=== PATIENT | male | born 1945 | race Caucasian/White ===

== ENCOUNTER 2019-10-18 15:09 | Inpatient (IN) ==
[2019-10-18] MEDS ORDERED: NS 0.9% 1000 ml BAG 1,000 ML IV ONE (16:23)
[2019-10-18 16:42] LABS: ABS Lymphocytes 0.3 10^3/ul (1.0-4.8); ABS Monocytes 0.2 10^3/ul (0-0.8); ABS Neutrophils 8.1 10^3/ul (1.5-7.7); Hematocrit 37 % (42-52); Hemoglobin 12.4 g/dL (14.0-18.0); Lymphocyte % 3.7 %; Mean Corpuscular HGB Conc 34 g/dL (31-36); Mean Corpuscular Hemoglobin 28 pg (27-31); Mean Corpuscular Volume 85 fL (80-94); Mean Platelet Volume 7.2 fL (7.4-10.4); Platelet Count 285 10^3/uL (150-450); Red Blood Count 4.37 10^6 /uL (4.18-5.48); Red Cell Distribution Width 20 % (10-15); White Blood Count 8.6 10^3/uL (3.5-10.8)
[2019-10-18 17:08] LABS: ALT 161 U/L (7-52); AST 153 U/L (13-39); Albumin 3.7 g/dL (3.2-5.2); Albumin/Globulin Ratio 1.2 (1-3); Alkaline Phosphatase 84 U/L (34-104); Anion Gap 8 mmol/L (2-11); Blood Urea Nitrogen 17 mg/dL (6-24); CO2 Carbon Dioxide 23 mmol/L (22-32); Calcium 9.5 mg/dL (8.6-10.3); Chloride 96 mmol/L (101-111); EGFR African American 196.1 (>60); EGFR Non-African American 162.1 (>60); Glucose 127 mg/dL (70-100); Potassium 4.9 mmol/L (3.5-5.0); Sodium 127 mmol/L (135-145); Total Protein 6.7 g/dL (6.4-8.9); Troponin I 0.03 ng/mL (<0.03)
[2019-10-18 18:29] LABS: Magnesium 1.7 mg/dL (1.9-2.7)
[2019-10-18] MEDS ORDERED: Magnesium Sulfate IV 3 GM in NS 0.9% 100 ml BAG 100 ML IVPB ONE (20:56)
[2019-10-18] MEDS ORDERED: NS 0.9% 1000 ml BAG 1,000 ML IV SCH (21:00)
[2019-10-18] MEDS: oxyCODONE/Acetamin 5/325 mg TAB PO PRN (21:14)
[2019-10-18 21:35] LABS: Creatine Kinase 916 U/L (10-223)
[2019-10-18] MEDS ORDERED: [UNRECOGNIZED DRUG - OTHER] IV ONE (22:25)
[2019-10-18] MEDS ORDERED: PRIVIGEN IV ONE (22:25)
[2019-10-18] MEDS ORDERED: IMMUNE GLOB IV ONE (22:25)
[2019-10-19 00:13] LABS: Troponin I 0.03 ng/mL (<0.03)
[2019-10-19 00:54] LABS: C Reactive Protein 24.23 mg/L (<8.01)
[2019-10-19 02:00] LABS: Erythrocyte Sed Rate 55 mm/Hr (0-19)
[2019-10-19] MEDS: oxyCODONE/Acetamin 5/325 mg TAB PO PRN ×4 (02:50→22:38)
[2019-10-19 05:14] LABS: BUN/Creatinine Ratio 31.4 (8-20); Calcium 8.5 mg/dL (8.6-10.3); EGFR African American 191.7 (>60); EGFR Non-African American 158.4 (>60); Potassium 3.7 mmol/L (3.5-5.0)
[2019-10-19 08:07] LABS: C Reactive Protein 20.98 mg/L (<8.01); Magnesium 2.2 mg/dL (1.9-2.7); Phosphorus 3.8 mg/dL (2.5-5.0)
[2019-10-19] MEDS ORDERED: Perflutren Lipid Microsphere 3 ML VIAL ONE (10:45)
[2019-10-19 11:56] LABS: Activated Partial Thrombo Time 24.9 seconds (26.0-38.0); INR 1.55 (0.82-1.09)
[2019-10-19] MEDS: Enoxaparin 40 MG/0.4 ML SYR SUBCUT SCH (12:33)
[2019-10-19] MEDS ORDERED: NS 0.9% w/ 20 Meq KCL 1000 ml 1,000 ML IV SCH (20:00)
[2019-10-19] MEDS: Morphine 2 MG/ML SYRINGE IV PRN (21:25)
[2019-10-19] MEDS: D5W NS 0.9% 20Meq KCL 1000 ml 1,000 ML IV SCH (21:36)
[2019-10-19] MEDS ORDERED: fentaNYL 100 mcg/2 ml 50 MCG/ML VIAL IV SLOW PU ONE (22:04)
[2019-10-19] MEDS ORDERED: Morphine 2 MG/ML SYRINGE IV ONE (22:53)
[2019-10-20] MEDS: Morphine 2 MG/ML SYRINGE IV PRN (02:00)
[2019-10-20] MEDS: oxyCODONE/Acetamin 5/325 mg TAB PO PRN ×2 (04:31→09:40)
[2019-10-20 04:37] LABS: ABS Basophils 0.1 10^3/ul (0-0.2); ABS Lymphocytes 0.6 10^3/ul (1.0-4.8); Eosinophil % 0.3 %; Hematocrit 34 % (42-52); Hemoglobin 11.8 g/dL (14.0-18.0); Mean Corpuscular HGB Conc 35 g/dL (31-36); Mean Corpuscular Hemoglobin 29 pg (27-31); Mean Corpuscular Volume 84 fL (80-94); Mean Platelet Volume 7.2 fL (7.4-10.4); Platelet Count 253 10^3/uL (150-450); Red Blood Count 4.04 10^6 /uL (4.18-5.48); Red Cell Distribution Width 20 % (10-15); White Blood Count 8.8 10^3/uL (3.5-10.8)
[2019-10-20 04:45] LABS: Calcium 8.5 mg/dL (8.6-10.3); Potassium 4.1 mmol/L (3.5-5.0)
[2019-10-20 04:51] LABS: BUN/Creatinine Ratio 29.8 (8-20); EGFR African American 210.7 (>60); EGFR Non-African American 174.1 (>60)
[2019-10-20] MEDS ORDERED: IMMUNE GLOB IV SCH (09:00)
[2019-10-20] MEDS ORDERED: PRIVIGEN IV SCH (09:00)
[2019-10-20] MEDS ORDERED: [UNRECOGNIZED DRUG - OTHER] IV SCH (09:00)
[2019-10-20] MEDS: Levothyroxine 100 MCG/5 ML VIAL IV SCH (09:40)
[2019-10-20] MEDS: PRIVIGEN IV SCH (11:10)
[2019-10-20] MEDS: [UNRECOGNIZED DRUG - OTHER] IV SCH (11:10)
[2019-10-20] MEDS: IMMUNE GLOB IV SCH (11:10)
[2019-10-20] MEDS: D5W NS 0.9% 20Meq KCL 1000 ml 1,000 ML IV SCH (12:03)
[2019-10-20] MEDS: Enoxaparin 40 MG/0.4 ML SYR SUBCUT SCH (14:34)
[2019-10-20] MEDS ORDERED: Succinylcholine 200 mg VIAL 20 mg/ml 10 ml VIAL (200 mg) ONE (16:23)
[2019-10-20] MEDS ORDERED: Propofol 10 mg/ml 100 ML BTL 100 ML ONE (16:35)
[2019-10-20] MEDS ORDERED: Etomidate 40 mg/20 ml (2 MG/ML) 20 ml VIAL (40 mg) ONE (16:37)
[2019-10-20] MEDS ORDERED: Propofol 10 MG/ML 20 ML BTL ONE ×2 (16:50→16:51)
[2019-10-20] MEDS: Propofol 10 mg/ml 100 ML BTL 100 ML IV SCH ×2 (17:00→20:04)
[2019-10-20] MEDS ORDERED: Hyaluronidase 15 units/mL for Extravasation Intradermal Use INTRADERM ONE (18:00)
[2019-10-20] MEDS ORDERED: Dexmedetomidine 1,000 MCG in NS 0.9% 250 ml 240 ML IV SCH (18:00)
[2019-10-20 19:17] LABS: Erythrocyte Sed Rate 80 mm/Hr (0-19)
[2019-10-20 22:11] LABS: Urine Appearance Cloudy; Urine Bilirubin Negative (Negative); Urine Blood 2+ (Negative); Urine Color Yellow; Urine Glucose Negative (Negative); Urine Ketones Negative (Negative); Urine Nitrite Negative (Negative); Urine Protein Negative (Negative); Urine Specific Gravity 1.017 (1.010-1.030); Urine Urobilinogen Negative (Negative)
[2019-10-20 22:20] LABS: Urine Bacteria Absent (Absent); Urine Red Blood Cell 2+(6-10/hpf) (Absent); Urine Squamous Epithelial Cell Present (Absent); Urine Transitional Epithelial Present (Absent); Urine White Blood Cell 1+(6-10/hpf) (Absent)
[2019-10-20] MEDS ORDERED: Propofol* 20 ML VIAL - FOR IV LINE PRIMING ONLY SCH (23:00)
[2019-10-21] MEDS: Propofol 10 mg/ml 100 ML BTL 100 ML IV SCH ×3 (00:02→06:21)
[2019-10-21] MEDS: Pantoprazole VIAL 40 MG VIAL IV SCH ×2 (00:02→22:45)
[2019-10-21] MEDS: Chlorhexidine MOUTHWASH 0.12% 15 ML UDC TOPICAL SCH ×6 (00:02→20:02)
[2019-10-21] MEDS: D5W NS 0.9% 20Meq KCL 1000 ml 1,000 ML IV SCH (03:11)
[2019-10-21] MEDS ORDERED: Propofol* 20 ML VIAL - FOR IV LINE PRIMING ONLY SCH (05:00)
[2019-10-21] MEDS: Levothyroxine 100 MCG/5 ML VIAL IV SCH (05:48)
[2019-10-21] MEDS: methylPREDNISolone SOD 40 mg/ml 1 ml VIAL IV SCH ×2 (06:35→16:58)
[2019-10-21] MEDS: [UNRECOGNIZED DRUG - OTHER] IV SCH (09:49)
[2019-10-21] MEDS: IMMUNE GLOB IV SCH (09:49)
[2019-10-21] MEDS: PRIVIGEN IV SCH (09:49)
[2019-10-21 10:00] LABS: ABS Lymphocytes 0.4 10^3/ul (1.0-4.8); ABS Monocytes 0.5 10^3/ul (0-0.8); ABS Neutrophils 8.4 10^3/ul (1.5-7.7); Hematocrit 32 % (42-52); Hemoglobin 10.7 g/dL (14.0-18.0); Lymphocyte % 4.1 %; Mean Corpuscular HGB Conc 34 g/dL (31-36); Mean Corpuscular Hemoglobin 29 pg (27-31); Mean Corpuscular Volume 86 fL (80-94); Mean Platelet Volume 7.6 fL (7.4-10.4); Platelet Count 209 10^3/uL (150-450); Red Blood Count 3.71 10^6 /uL (4.18-5.48); Red Cell Distribution Width 20 % (10-15); White Blood Count 9.3 10^3/uL (3.5-10.8)
[2019-10-21 10:37] LABS: Albumin 2.8 g/dL (3.2-5.2); Albumin/Globulin Ratio 0.9 (1-3); BUN/Creatinine Ratio 27.8 (8-20); EGFR African American 179.5 (>60); EGFR Non-African American 148.3 (>60); Globulin 3.2 g/dL (2-4); Potassium 4.7 mmol/L (3.5-5.0); Total Bilirubin 0.6 mg/dL (0.2-1.0)
[2019-10-21] MEDS ORDERED: Lactated Ringers 1000 ml BAG 1,000 ML IV SCH (12:25)
[2019-10-21] MEDS: Enoxaparin 40 MG/0.4 ML SYR SUBCUT SCH (14:10)
[2019-10-22] MEDS: Chlorhexidine MOUTHWASH 0.12% 15 ML UDC TOPICAL SCH ×6 (00:41→19:13)
[2019-10-22 04:19] LABS: ABS Basophils 0.1 10^3/ul (0-0.2); ABS Lymphocytes 0.5 10^3/ul (1.0-4.8); ABS Monocytes 0.7 10^3/ul (0-0.8); ABS Neutrophils 8.3 10^3/ul (1.5-7.7); Eosinophil % 0.1 %; Hematocrit 30 % (42-52); Hemoglobin 10.2 g/dL (14.0-18.0); Lymphocyte % 5.2 %; Mean Corpuscular HGB Conc 34 g/dL (31-36); Mean Corpuscular Hemoglobin 29 pg (27-31); Mean Corpuscular Volume 86 fL (80-94); Mean Platelet Volume 7.7 fL (7.4-10.4); Platelet Count 210 10^3/uL (150-450); Red Blood Count 3.49 10^6 /uL (4.18-5.48); Red Cell Distribution Width 21 % (10-15); White Blood Count 9.6 10^3/uL (3.5-10.8)
[2019-10-22 04:32] LABS: BUN/Creatinine Ratio 42.1 (8-20); Calcium 8.2 mg/dL (8.6-10.3); EGFR African American 168.6 (>60); EGFR Non-African American 139.4 (>60); Potassium 4.4 mmol/L (3.5-5.0)
[2019-10-22] MEDS: Dexmedetomidine 1,000 MCG in NS 0.9% 250 ml 240 ML IV SCH (05:38)
[2019-10-22] MEDS: methylPREDNISolone SOD 40 mg/ml 1 ml VIAL IV SCH ×2 (06:20→18:26)
[2019-10-22] MEDS: Levothyroxine 100 MCG/5 ML VIAL IV SCH (06:20)
[2019-10-22] MEDS: [UNRECOGNIZED DRUG - OTHER] IV SCH (10:00)
[2019-10-22] MEDS: PRIVIGEN IV SCH (10:00)
[2019-10-22] MEDS: IMMUNE GLOB IV SCH (10:00)
[2019-10-22] MEDS ORDERED: Furosemide 40 mg/4 ml IV VIAL IV ONE (10:30)
[2019-10-22] MEDS: Enoxaparin 40 MG/0.4 ML SYR SUBCUT SCH (11:45)
[2019-10-22] MEDS: Morphine 2 MG/ML SYRINGE IV PRN ×2 (13:34→19:05)
[2019-10-22] MEDS: oxyCODONE/Acetamin 5/325 mg TAB PO PRN ×2 (15:08→21:17)
[2019-10-22] MEDS ORDERED: Scopolamine PATCH Remove NOTE PATCH OFF SCH (19:59)
[2019-10-23] MEDS: Pantoprazole VIAL 40 MG VIAL IV SCH ×2 (00:08→23:02)
[2019-10-23] MEDS: Chlorhexidine MOUTHWASH 0.12% 15 ML UDC TOPICAL SCH ×7 (00:08→23:02)
[2019-10-23] MEDS: oxyCODONE/Acetamin 5/325 mg TAB PO PRN ×4 (01:18→19:08)
[2019-10-23] MEDS: Dexmedetomidine 1,000 MCG in NS 0.9% 250 ml 240 ML IV SCH ×2 (01:20→17:11)
[2019-10-23] MEDS: Levothyroxine 100 MCG/5 ML VIAL IV SCH (05:11)
[2019-10-23 06:13] LABS: ABS Basophils 0.1 10^3/ul (0-0.2); ABS Lymphocytes 0.5 10^3/ul (1.0-4.8); ABS Monocytes 0.8 10^3/ul (0-0.8); ABS Neutrophils 7.9 10^3/ul (1.5-7.7); Hematocrit 31 % (42-52); Hemoglobin 10.5 g/dL (14.0-18.0); Lymphocyte % 5.1 %; Mean Corpuscular HGB Conc 34 g/dL (31-36); Mean Corpuscular Hemoglobin 29 pg (27-31); Mean Corpuscular Volume 85 fL (80-94); Mean Platelet Volume 7.8 fL (7.4-10.4); Nucleated Red Blood Cells % 0.1; Platelet Count 252 10^3/uL (150-450); Red Blood Count 3.64 10^6 /uL (4.18-5.48); Red Cell Distribution Width 20 % (10-15); White Blood Count 9.2 10^3/uL (3.5-10.8)
[2019-10-23 06:31] LABS: BUN/Creatinine Ratio 60.3 (8-20); Calcium 8.8 mg/dL (8.6-10.3); EGFR African American 150.2 (>60); EGFR Non-African American 124.2 (>60); Magnesium 1.8 mg/dL (1.9-2.7); Phosphorus 4.1 mg/dL (2.5-5.0); Potassium 4.6 mmol/L (3.5-5.0)
[2019-10-23] MEDS: methylPREDNISolone SOD 40 mg/ml 1 ml VIAL IV SCH ×2 (06:48→18:58)
[2019-10-23] MEDS: [UNRECOGNIZED DRUG - OTHER] IV SCH (09:11)
[2019-10-23] MEDS: PRIVIGEN IV SCH (09:11)
[2019-10-23] MEDS: IMMUNE GLOB IV SCH (09:11)
[2019-10-23] MEDS ORDERED: Furosemide 20 mg/2 ml IV VIAL IV ONE (10:27)
[2019-10-23] MEDS: Morphine 2 MG/ML SYRINGE IV PRN ×3 (11:16→23:02)
[2019-10-23] MEDS: Enoxaparin 40 MG/0.4 ML SYR SUBCUT SCH (11:55)
[2019-10-24] MEDS: oxyCODONE/Acetamin 5/325 mg TAB PO PRN (02:55)
[2019-10-24] MEDS: Chlorhexidine MOUTHWASH 0.12% 15 ML UDC TOPICAL SCH ×5 (03:04→22:59)
[2019-10-24] MEDS: methylPREDNISolone SOD 40 mg/ml 1 ml VIAL IV SCH ×2 (06:05→18:34)
[2019-10-24] MEDS: Levothyroxine 100 MCG/5 ML VIAL IV SCH (06:05)
[2019-10-24] MEDS: Dexmedetomidine 1,000 MCG in NS 0.9% 250 ml 240 ML IV SCH (07:27)
[2019-10-24 08:54] LABS: BUN/Creatinine Ratio 74.6 (8-20); EGFR Non-African American 133.9 (>60); Phosphorus 3.8 mg/dL (2.5-5.0); Potassium 4.8 mmol/L (3.5-5.0)
[2019-10-24 10:42] LABS: ABS Lymphocytes 0.4 10^3/ul (1.0-4.8); ABS Monocytes 0.7 10^3/ul (0-0.8); ABS Neutrophils 7.3 10^3/ul (1.5-7.7); Hematocrit 32 % (42-52); Hemoglobin 10.5 g/dL (14.0-18.0); Lymphocyte % 4.3 %; Mean Corpuscular HGB Conc 33 g/dL (31-36); Mean Corpuscular Hemoglobin 28 pg (27-31); Mean Corpuscular Volume 85 fL (80-94); Mean Platelet Volume 7.6 fL (7.4-10.4); Platelet Count 255 10^3/uL (150-450); Red Blood Count 3.68 10^6 /uL (4.18-5.48); Red Cell Distribution Width 20 % (10-15); White Blood Count 8.4 10^3/uL (3.5-10.8)
[2019-10-24] MEDS: Enoxaparin 40 MG/0.4 ML SYR SUBCUT SCH (13:29)
[2019-10-24] MEDS: Lidocaine PATCH 5% PATCH TRANSDERM SCH (16:57)
[2019-10-24] MEDS ORDERED: Albuterol/Ipratropium NEB.SOL (2.5/0.5 MG) 3 ML NEB.SOLN INH PRN (20:02)
[2019-10-24] MEDS ORDERED: Succinylcholine 200 mg VIAL 20 mg/ml 10 ml VIAL (200 mg) ONE (20:25)
[2019-10-24] MEDS ORDERED: Propofol 10 mg/ml 100 ML BTL 100 ML ONE (20:33)
[2019-10-24] MEDS ORDERED: Propofol 10 MG/ML 20 ML BTL ONE (20:40)
[2019-10-24] MEDS: Propofol 10 mg/ml 100 ML BTL 100 ML IV SCH (20:40)
[2019-10-24] MEDS ORDERED: Ketamine HCL 50 mg/ml 10 ml VIAL (500 MG) ONE (20:40)
[2019-10-24] MEDS ORDERED: Furosemide 20 mg/2 ml IV VIAL IV SLOW PU ONE (20:46)
[2019-10-24] MEDS ORDERED: Furosemide 20 mg/2 ml IV VIAL ONE (20:48)
[2019-10-24] MEDS ORDERED: Lidocaine Patch REMOVE PATCH PATCH OFF SCH (21:00)
[2019-10-24] MEDS: Pantoprazole VIAL 40 MG VIAL IV SCH (22:59)
[2019-10-24] MEDS ORDERED: fentaNYL 100 mcg/2 ml 50 MCG/ML VIAL IV SLOW PU PRN (23:29)
[2019-10-25] MEDS: Propofol 10 mg/ml 100 ML BTL 100 ML IV SCH ×4 (00:06→15:26)
[2019-10-25 00:44] LABS: Urine Appearance Clear; Urine Bilirubin Negative (Negative); Urine Blood Negative (Negative); Urine Color Straw; Urine Glucose Negative (Negative); Urine Ketones Negative (Negative); Urine Nitrite Negative (Negative); Urine Protein Negative (Negative); Urine Specific Gravity 1.009 (1.010-1.030); Urine Urobilinogen Negative (Negative)
[2019-10-25] MEDS: Chlorhexidine MOUTHWASH 0.12% 15 ML UDC TOPICAL SCH ×3 (04:26→11:35)
[2019-10-25 04:43] LABS: ABS Lymphocytes 0.5 10^3/ul (1.0-4.8); ABS Monocytes 0.9 10^3/ul (0-0.8); ABS Neutrophils 9.1 10^3/ul (1.5-7.7); Hematocrit 34 % (42-52); Hemoglobin 11.1 g/dL (14.0-18.0); Lymphocyte % 4.4 %; Mean Corpuscular HGB Conc 33 g/dL (31-36); Mean Corpuscular Hemoglobin 28 pg (27-31); Mean Corpuscular Volume 86 fL (80-94); Mean Platelet Volume 7.6 fL (7.4-10.4); Platelet Count 261 10^3/uL (150-450); Red Blood Count 3.92 10^6 /uL (4.18-5.48); Red Cell Distribution Width 20 % (10-15); White Blood Count 10.5 10^3/uL (3.5-10.8)
[2019-10-25 05:31] LABS: Calcium 8.7 mg/dL (8.6-10.3); Magnesium 1.9 mg/dL (1.9-2.7); Potassium 4.6 mmol/L (3.5-5.0)
[2019-10-25 05:36] LABS: BUN/Creatinine Ratio 66.1 (8-20); EGFR Non-African American 126.5 (>60); Phosphorus 4.3 mg/dL (2.5-5.0)
[2019-10-25] MEDS: Levothyroxine 100 MCG/5 ML VIAL IV SCH (05:59)
[2019-10-25] MEDS: methylPREDNISolone SOD 40 mg/ml 1 ml VIAL IV SCH (06:00)
[2019-10-25] MEDS: Lidocaine PATCH 5% PATCH TRANSDERM SCH (07:58)
[2019-10-25] MEDS ORDERED: Propofol 10 MG/ML 20 ML BTL ONE (10:29)
[2019-10-25] MEDS: Enoxaparin 40 MG/0.4 ML SYR SUBCUT SCH (11:35)
[2019-10-25 15:30] VITALS: BP 130/70
== END 2019-10-25 16:15 | disposition short-term general hospital (02) | DRG 56 ==
LOC: ED 15:09 → MEDTELE 20:49 → ICU 22:59
PROVIDERS: ADMIT Internal Medicine; ATTEND Internal Medicine